=== PATIENT | male | born 1995 | race Caucasian/White ===

== ENCOUNTER 2018-11-29 13:22 | Emergency (ER) | payer BC, OTHER ==
--- NOTE | 2018-11-29 15:29 | EDPHY ---
General Time Seen by Provider: 11/29/18 15:11 Narrative: CLINICAL IMPRESSION: Left wrist strain ASSESSMENT/PLAN: 23-year-old male presents to the emergency department with left wrist injury after shooting a bow and arrow. Patient reports prior injury to this wrist but without surgical management. Distal neurovascular exam intact. No bony point tenderness to ulnar styloid or distal radius. No scaphoid pain. No open wounds obvious deformity or swelling. X-rays suggest the possible ulnar styloid fracture although this does not clinically correlate with patient's location of pain. Range of motion limited by pain but intact. I suspect this is more of a ligamentous strain. He was placed in a Velcro wrist splint and advised to follow up with Orthopedics. Referral given. Warning signs return to ED outlined discharge. DIFFERENTIAL DX: Differential includes but not limited to acute fracture, strain/sprain, joint dislocation, soft tissue contusion ED PROCEDURES: Patient to wear splint he brought with him ED COURSE: X-rays reviewed by myself. Possible ulnar styloid fracture. No reproducible pain to this location on the patient. CHIEF COMPLAINT: Left wrist pain HPI: 23-year-old male presents with left wrist pain after shooting a bow and arrow Patient reports he injured this wrist in the past, but never required surgery. He denies any trauma today. No loss of sensation to the fingers or hand. No open wounds. No forearm or elbow pain. PAST MEDICAL HISTORY: Prior left wrist injury Pertinent Past Surgical History: None reported Social History: Otherwise healthy REVIEW OF SYSTEMS: All other systems negative Constitutional: No fever, no chills Musculoskeletal: No deformity, + joint pain Skin: No rashes, color change or open wounds. Neurological: No sensory loss or weakness. PHYSICAL EXAM: General Appearance: Alert, oriented, appropriate for age, cooperative, NAD, well hydrated, non-toxic appearing, VSS, no hypoxia. Neurological: Alert and oriented x 3, normal sensation and strength of extremities Skin: Warm, dry, no rashes, no nodules on palpation. Musculoskeletal: Limited range of motion of left wrist secondary to pain. No obvious swelling. No joint deformity. No focal point tenderness over ulnar styloid or scaphoid. No forearm or elbow pain. Distal neurovascular exam intact. MEDICAL DECISION MAKING: Patient was seen independently. Secondary supervising physician at time of evaluation was Dr. Dutta. Diagnosis: Left wrist strain . New, requires workup Summary: See assessment and plan for summary of ED visit Independent visualization of images, tracing, or specimens yes. Patient Progress: Stable for discharge. - History Smoking Status: Never smoked - Objective Vital Signs: Initial Vital Signs Temperature (C) 36.9 C 11/29/18 14:04 Heart Rate 66 11/29/18 14:04 Respiratory Rate 16 11/29/18 14:04 Blood Pressure 133/80 H 11/29/18 14:04 O2 Sat (%) 96 11/29/18 14:04 O2 Delivery Mode Room Air Allergies/Adverse Reactions: ibuprofen Allergy (Mild, Verified 11/05/13 11:48) nausea "numerous food allergies Allergy (Uncoded 11/05/13 11:48) Departure - Departure Disposition: Home, Routine, Self-Care Clinical Impression: Strain of wrist, left Condition: Good Instructions: Wrist Injury (ED) Additional Instructions: DISCHARGE INSTRUCTIONS FROM YOUR DOCTOR Thank you for visiting our emergency department today. You were treated by a physician kindergarten teacher assistant today and your case was reviewed with our ED Attending physician. Please keep in mind that discharge from the emergency department does not mean that there is nothing wrong - it simply means that we have not identified an emergency condition that requires further evaluation or treatment in the hospital. You should always plan to follow up with primary care for re- evaluation of your condition in the next 2-3 days. If you have been referred to a specialist, please call as soon as possible (today or tomorrow) to schedule your follow up appointment at the appropriate time. WEAR THE WRIST SPLINT YOU HAVE AT HOME. REST AND ELEVATE THE AFFECTED EXTREMITY MUCH POSSIBLE. ICE THE AFFECTED AREAS 20 MIN ON, 20 MIN OFF FOR THE NEXT SEVERAL DAYS. ORTHOPEDIC REFERRAL TO USE IF PAIN PERSISTS. X-RAY SHOW NO FRACTURE. RETURN TO THE ED FOR WORSENING PAIN, LOSS OF SENSATION TO HAND OR FINGERS OR ANY OTHER CONCERN. People present with illnesses and injuries in different ways, and it is always possible that we have missed something. You may always return for re-evaluation if symptoms worsen or if they are not improving or if you develop new/different symptoms. Again, thank you for choosing our emergency department. We hope that you feel better. Referrals: NONE *PRIMARY CARE P,. [Primary Care Provider] - As per Instructions Chemo Aguilar MD [Medical Doctor] - 5-7 days, if not improved
[2018-11-29 15:51] VITALS: BP 109/60
== END 2018-11-29 15:47 | disposition home or self-care (01) ==
DX: S63.502A Unspecified sprain of left wrist, initial encounter (principal); X50.9XXA Other and unspecified overexertion or strenuous movements or postures, initial encounter; Y92.9 Unspecified place or not applicable; Y99.9 Unspecified external cause status; Y93.9 Activity, unspecified

== ENCOUNTER 2019-02-06 14:38 | Emergency (ER) | payer OTHER ==
[2019-02-06 14:48] VITALS: BP 137/84
[2019-02-06] MEDS ORDERED: CYCLOBENZAPRINE 10 MG TAB PO ONE (14:57)
[2019-02-06] MEDS ORDERED: LIDOCAINE 4%/MENTHOL 1% PATCH TD ONE (14:57)
[2019-02-06] MEDS ORDERED: ACETAMINOPHEN 500 MG TAB PO ONE (14:57)
--- NOTE | 2019-02-06 15:24 | EDPHY ---
H & P Stated Complaint: back pain Time Seen by Provider: 02/06/19 14:41 HPI/ROS: CHIEF COMPLAINT: Right paraspinous lumbar pain x3 days HISTORY OF PRESENT ILLNESS: 23-year-old male generally healthy, no history of IV drug use or recent interventional event, complaining of atraumatic right paraspinous lumbar back pain for the past 3 days after he went jogging for the 1st time in several years. No radiculopathy. No trauma or fall. Pain is reproducible with positions. Denies: Incontinence, retention, saddle anesthesia, weakness, foot drop PRIMARY CARE PROVIDER: REVIEW OF SYSTEMS: A ten point review of systems was performed and is negative with the exception of the items mentioned in the HPI PAST MEDICAL & SURGICAL HISTORY: No pertinent medical or surgical history SOCIAL HISTORY: No IV drug use history PHYSICAL EXAM (Prior to examination, patient consented to physical exam, hands were washed and my usual and customary physical exam procedures followed) 1) GENERAL: Well-developed, well-nourished, alert and oriented. Appears to be in no acute distress. 2) HEAD: Normocephalic, atraumatic 3) HEENT: Pupils equal, round, reactive to light bilaterally. Sclera anicteric. Nasopharynx, oropharynx, clear, no lesions. 4) NECK: Full range of motion, no meningeal signs. 5) LUNGS: Clear auscultation bilaterally, no wheezes, no rhonchi, no retractions. 6) HEART: Regular rate and rhythm, no murmur, no heave, no gallop. 7) ABDOMEN: No guarding, no rebound, no focal tenderness, negative McBurney's, negative Hood's, negative Rovsing's, negative peritoneal sign, 8) MUSCULOSKELETAL: Moving all extremities, no focal areas of tenderness, no obvious trauma. No peripheral edema or discoloration. 9) BACK: tender to palpation right paraspinous muscle. No CVA tenderness, no midline vertebral tenderness, no fluctuance, no step-off, no obvious trauma, no visual or palpable abnormality. Patella, Achilles reflexes intact to bilateral strength 5/5 10) SKIN: No rash, no petechiae. 11) NEURO: Awake, alert, and oriented to person, place and time. Answers questions appropriately. There were no obvious focal neurologic abnormalities. No cerebellar dysfunction. Normal steady gait. Upper and lower extremities bilaterally with strength 5 / 5, reflexes 2+.. DIFFERENTIAL DIAGNOSIS: In no particular order, including but not limited to, fracture, sprain/strain, cauda equina, spinal infectious etiology. MEDICAL DECISION MAKING Lower index of suspicion for cauda equina, epidural abscess, epidural hematoma, lumbar myositis, diskitis, as the patient is neurologically intact in the lower extremities, has patella and Achilles reflexes intact and equal bilaterally, has no neurologic deficits, no incontinence, no retention, no midline pain, no fluctuance, afebrile, no flulike symptoms. Pain may be secondary to muscular strain, may be secondary to discogenic etiology. At this point I do not identify definitive indication for emergent MRI, however patient may necessitate this on an outpatient basis. Patient given acute back pain precautions. Patient verbalizes understanding of discharge instructions. I believe him to be a competent decision-maker. All questions and concerns have been addressed by me. Ample opportunity for questions have been provided . The patient understands that this diagnosis is provisional and can never be 100 % accurate. Usual and customary warnings were given concerning the clinical impression and all the patient's questions were answered. The patient was instructed to return to the emergency department should her symptoms worsen or return, or develop any new symptoms, otherwise to followup as directed in discharge instructions. - Personal History Current Tetanus/Diphtheria Vaccine: Yes Current Tetanus Diphtheria and Acellular Pertussis (TDAP): Yes - Medical/Surgical History Hx Asthma: No Hx Chronic Respiratory Disease: No Hx Diabetes: No Hx Cardiac Disease: No Hx Renal Disease: No Hx Cirrhosis: No Hx Alcoholism: No Hx HIV/AIDS: No Hx Splenectomy or Spleen Trauma: No Other PMH: kidney stones, L knee x 3, oral surgery, right arm fx, left arm fx - Social History Smoking Status: Never smoked Constitutional: Initial Vital Signs Temperature (C) 36.3 C 02/06/19 14:45 Heart Rate 70 02/06/19 14:45 Respiratory Rate 16 02/06/19 14:45 Blood Pressure 137/84 H 02/06/19 14:45 O2 Sat (%) 97 02/06/19 14:45 O2 Delivery Mode Room Air Allergies/Adverse Reactions: ibuprofen Allergy (Mild, Verified 11/05/13 11:48) nausea "numerous food allergies Allergy (Uncoded 11/05/13 11:48) Home Medications: Medication Instructions Recorded Cyclobenzaprine [Flexeril 10 MG 10 mg PO TID #15 tab 02/06/19 (RX)] Lidocaine [Lidoderm] 1 each TP BID #30 adh..patch 02/06/19 Medical Decision Making - Data Points Medications Given: Discontinued Medications Acetaminophen (Tylenol) 1,000 mg PO EDNOW ONE Stop: 02/06/19 14:58 Last Admin: 02/06/19 15:05 Dose: 1,000 mg Cyclobenzaprine HCl (Flexeril) 10 mg PO EDNOW ONE Stop: 02/06/19 14:58 Last Admin: 02/06/19 15:05 Dose: 10 mg Miscellaneous Medication (Icy Hot Lidocaine/Menthol 4%/1% Patch) 1 patch TD EDNOW ONE Stop: 02/06/19 14:58 Last Admin: 02/06/19 15:06 Dose: 1 patch Departure - Departure Disposition: Home, Routine, Self-Care Clinical Impression: Acute low back pain Qualifiers: Back pain laterality: right Sciatica presence: without sciatica Qualified Code( s): M54.5 - Low back pain Condition: Good Instructions: Low Back Strain (ED) Additional Instructions: Seek medical attention if you develop new or worsening pain, if you develop bladder or bowel dysfunction, numbness around your perineum, foot drop, or any other symptoms that concern you. Referrals: Clarisa Malone MD [Medical Doctor] - As per Instructions Prescriptions: Cyclobenzaprine [Flexeril 10 MG (RX)] 10 mg PO TID #15 tab Lidocaine [Lidoderm] 1 each TP BID #30 adh..patch
[2019-02-06] MEDS ORDERED: PATCH REMOVAL 1 EA PATCH TD SCH (21:00)
== END 2019-02-06 15:39 | disposition home or self-care (01) ==
DX: M54.5 Low back pain (principal)